=== PATIENT | female | born 1970 | race Caucasian/White ===

== ENCOUNTER 2017-07-01 23:45 | Emergency (ER) | payer OTHER ==
[~2017-07-01] VITALS: Ht 162.6 cm; Wt 104.5 kg
[2017-07-01 23:46] VITALS: BP 131/74; TEMP 98.7
[2017-07-01] MEDS ORDERED: EVOXAC30 MG PO (23:51)
[2017-07-01] MEDS ORDERED: PLAQUENIL 200M200 MG PO (23:51)
[2017-07-01] MEDS ORDERED: PROVIGIL 100MG100 MG PO (23:52)
[2017-07-01] MEDS ORDERED: VITAMIN D31000 I1 PO (23:53)
[2017-07-01] MEDS ORDERED: BENADRYL E2.5 MG/1 M PO (23:53)
[2017-07-02] MEDS ORDERED: SYNTHROID0.1 MG/TAB PO (00:33)
[2017-07-02] MEDS ORDERED: TUSS PO (01:56)
[2017-07-02 02:04] VITALS: PULSE 102
[2017-07-07] VITALS (666 sets, daily range): O2SAT 86–100
== END 2017-07-02 02:05 | disposition home or self-care (01) ==
LOC: COL.ER 23:45
DX: J30.9 Allergic rhinitis, unspecified (principal); R07.81 Pleurodynia; R05 Cough; E03.9 Hypothyroidism, unspecified; Z90.710 Acquired absence of both cervix and uterus; Z90.89 Acquired absence of other organs

== ENCOUNTER 2017-07-04 05:44 | Inpatient (IN) | payer OTHER ==
[~2017-07-04] VITALS: Ht 162.6 cm; Wt 106.9 kg
[~2017-07-04 05:44] MED LIST: BENADRYL E2.5 MG/1 M PO; EVOXAC30 MG PO; PLAQUENIL 200M200 MG PO; PROVIGIL 100MG100 MG PO; SYNTHROID0.1 MG/TAB PO; TUSS PO; VITAMIN D31000 I1 PO
[2017-07-04 06:28] LABS: BASO # 0.1 (0.0-0.2); BASO % 0.3 % (0.0-2.0); EOS % 0.1 % (0-4.0); GRAN # 14.1 (1.4-6.5); GRAN % 86.7 % (42.2-75.2); LYMPH # 1.1 (1.2-3.4); LYMPH % 6.7 % (20.0-51.0); MEAN CELL VOLUME 92 fl (80.0-100.0); MEAN CORPUSCULAR HGB CONC 33 g/dl (33.0-37.0); MEAN PLATELET VOLUME 8.5 fl (7.4-10.4); MONO % 5.9 % (1.7-9.3); PLATELET COUNT 427 K/mm3 (130-400); RED BLOOD COUNT 3.83 M/mm3 (4.10-5.30); WHITE BLOOD COUNT 16.3 K/mm3 (4.8-10.8)
[2017-07-04 06:29] LABS: HEMATOCRIT 35.2 % (37.0-47.0); HEMOGLOBIN 11.7 g/dl (12.5-16.0); MEAN CORPUSCULAR HEMOGLOBIN 31 pg (27.0-31.0)
[2017-07-04 06:50] LABS: ADJUSTED CALCIUM 9.5 mg/dL (8.4-10.2); ALBUMIN 4.1 gm/dL (3.5-5.0); BILIRUBIN,TOTAL 1.4 mg/dL (0.0-1.0); CALCIUM 9.6 mg/dL (8.4-10.2); CREATININE, serum 0.71 mg/dL (0.52-1.25); POTASSIUM 3.5 mmol/L (3.4-5.0); TOTAL PROTEIN 7.1 gm/dL (6.4-8.2)
[2017-07-04 07:17] LABS: B-TYPE NATRIURETIC PEPTIDE 69 pg/mL (0-125)
[2017-07-04 07:18] LABS: TROPONIN-I < 0.012 ng/mL (0.000-0.034)
[2017-07-04 07:32] LABS: C-REACTIVE PROTEIN 21.6 mg/dL (0.0-0.9)
[2017-07-04 09:52] VITALS: BP 128/69; PULSE 98; TEMP 97.1
[2017-07-04] MEDS ORDERED: EVOXAC30 MG PO (10:52)
[2017-07-04] MEDS ORDERED: ADVIL200 MG PO (11:16)
[2017-07-04] MEDS ORDERED: TUMS500 MG (11:18)
[2017-07-04 12:52] VITALS: BP 114/53; PULSE 95; TEMP 98.3
[2017-07-04 16:01] VITALS: BP 142/74; PULSE 106; TEMP 97.4
[2017-07-04 18:14] LABS: INFLUENZA B NEGATIVE
[2017-07-04 21:20] VITALS: BP 134/58; PULSE 118; TEMP 98.5
[2017-07-04 23:59] VITALS: BP 117/66; PULSE 115; TEMP 97.1
[2017-07-05] VITALS (272 sets, daily range): BP systolic 94–154; BP diastolic 54–75; PULSE 94–117; TEMP 97.5–99.3; O2SAT 87–100
[2017-07-05 07:35] LABS: MEAN CELL VOLUME 95 fl (80.0-100.0); MEAN CORPUSCULAR HGB CONC 32 g/dl (33.0-37.0); MEAN PLATELET VOLUME 8.8 fl (7.4-10.4); PLATELET COUNT 437 K/mm3 (130-400); RED BLOOD COUNT 3.71 M/mm3 (4.10-5.30); REDCELL DISTRIBUTION WIDTH-CV 13.2 % (11.5-14.5)
[2017-07-05 07:37] LABS: INR 1.4 (0.8-3.0); PROTHROMBIN TIME 15.7 SECONDS (9.7-12.8)
[2017-07-05 07:38] LABS: ADD PATHOLOGY DIFF REVIEW NO; HEMATOCRIT 35.1 % (37.0-47.0); HEMOGLOBIN 11.1 g/dl (12.5-16.0); MEAN CORPUSCULAR HEMOGLOBIN 30 pg (27.0-31.0)
[2017-07-05 07:54] LABS: CALCIUM 8.5 mg/dL (8.4-10.2); CREATININE, serum 0.65 mg/dL (0.52-1.25); MAGNESIUM 1.7 mg/dL (1.6-2.3); PHOSPHOROUS 3.5 mg/dL (2.5-4.5); POTASSIUM 3.4 mmol/L (3.4-5.0)
[2017-07-05 08:54] LABS: BAND 22 % (0-10); BASOPHIL 1 % (0-2); METAMYELOCYTE 1 % (0-0); NEUTROPHILS 70 % (42.0-75.2); PLATELET ESTIMATE NORMAL (NORMAL); TOTAL CELLS COUNTED 100
[2017-07-05 20:07] LABS: ARTERIAL BLD GAS O2 SATURATION 93.6 % (92-100); ARTERIAL BLD GAS TCO2 CT 22.6; ARTERIAL BLOOD GAS BASE EXCESS -2.6 (-2-2); ARTERIAL BLOOD GAS HCO3 21.5 meq/L (22-26); ARTERIAL BLOOD GAS PO2 68.4 mmHg (80-100); ARTERIAL BLOOD GAS pH 7.41 (7.35-7.45); ATS? NO; OXYHEMOGLOBIN 92.8 %
[2017-07-06] VITALS (1094 sets, daily range): BP systolic 88–121; BP diastolic 49–86; PULSE 89–100; TEMP 97.6–99.9; O2SAT 87–100
[2017-07-06 05:13] LABS: ARTERIAL BLD GAS O2 SATURATION 95.5 % (92-100); ARTERIAL BLD GAS TCO2 CT 24.8; ARTERIAL BLOOD GAS BASE EXCESS 1.1 (-2-2); ARTERIAL BLOOD GAS HCO3 23.8 meq/L (22-26); ARTERIAL BLOOD GAS PO2 76.3 mmHg (80-100); ATS? NO; OXYHEMOGLOBIN 94.6 %
[2017-07-06 06:19] LABS: MEAN CELL VOLUME 94 fl (80.0-100.0); MEAN CORPUSCULAR HGB CONC 33 g/dl (33.0-37.0); MEAN PLATELET VOLUME 8.6 fl (7.4-10.4); PLATELET COUNT 424 K/mm3 (130-400); REDCELL DISTRIBUTION WIDTH-CV 13.3 % (11.5-14.5)
[2017-07-06 06:25] LABS: ADD PATHOLOGY DIFF REVIEW NO; HEMOGLOBIN 10.3 g/dl (12.5-16.0); MEAN CORPUSCULAR HEMOGLOBIN 31 pg (27.0-31.0); WHITE BLOOD COUNT 20.1 K/mm3 (4.8-10.8)
[2017-07-06 06:34] LABS: ADJUSTED CALCIUM 9.2 mg/dL (8.4-10.2); ALBUMIN 2.9 gm/dL (3.5-5.0); BAND 1 % (0-10); BILIRUBIN,TOTAL 0.9 mg/dL (0.0-1.0); CALCIUM 8.3 mg/dL (8.4-10.2); CREATININE, serum 0.95 mg/dL (0.52-1.25); MAGNESIUM 1.9 mg/dL (1.6-2.3); NEUTROPHILS 83 % (42.0-75.2); PHOSPHOROUS 3.1 mg/dL (2.5-4.5); TOTAL CELLS COUNTED 100; TOTAL PROTEIN 6.1 gm/dL (6.4-8.2)
[2017-07-06 06:35] LABS: ANISOCYTOSIS 1+; POLYCHROMASIA 1+
[2017-07-06 06:38] LABS: MICROCYTOSIS 1+; ROULEAUX 1+
[2017-07-06 06:39] LABS: HYPOCHROMIA 1+
[2017-07-06 06:48] LABS: PROLACTIN 55.8 ng/mL (3.0-18.6)
[2017-07-06 07:54] LABS: VANCOMYCIN TROUGH 20.38 ug/mL (7.00-20.00)
[2017-07-06 08:08] LABS: C-REACTIVE PROTEIN 42.7 mg/dL (0.0-0.9)
[2017-07-06 11:24] LABS: ARTERIAL BLD GAS O2 SATURATION 94.7 % (92-100); ARTERIAL BLD GAS TCO2 CT 24.8; ARTERIAL BLOOD GAS BASE EXCESS 0.2 (-2-2); ARTERIAL BLOOD GAS HCO3 23.8 meq/L (22-26); ARTERIAL BLOOD GAS PO2 75.4 mmHg (80-100); ARTERIAL BLOOD GAS pH 7.45 (7.35-7.45); ATS? YES; OXYHEMOGLOBIN 93.7 %
[2017-07-07] VITALS (11 sets, daily range): BP systolic 106–121; BP diastolic 59–87; PULSE 80–91; TEMP 97.2–98.6; O2SAT 94–97
[2017-07-07 06:17] LABS: BASO # 0.1 (0.0-0.2); BASO % 0.4 % (0.0-2.0); EOS # 0.1 (0.0-0.7); EOS % 0.7 % (0-4.0); GRAN # 10.8 (1.4-6.5); GRAN % 81.1 % (42.2-75.2); LYMPH # 1.4 (1.2-3.4); LYMPH % 10.6 % (20.0-51.0); MEAN CELL VOLUME 96 fl (80.0-100.0); MEAN CORPUSCULAR HGB CONC 32 g/dl (33.0-37.0); MEAN PLATELET VOLUME 8.6 fl (7.4-10.4); MONO # 0.9 (0.1-0.6); MONO % 6.7 % (1.7-9.3); PLATELET COUNT 363 K/mm3 (130-400); RED BLOOD COUNT 2.81 M/mm3 (4.10-5.30); REDCELL DISTRIBUTION WIDTH-CV 13.5 % (11.5-14.5); WHITE BLOOD COUNT 13.3 K/mm3 (4.8-10.8)
[2017-07-07 06:20] LABS: HEMATOCRIT 26.9 % (37.0-47.0); HEMOGLOBIN 8.6 g/dl (12.5-16.0); MEAN CORPUSCULAR HEMOGLOBIN 31 pg (27.0-31.0)
[2017-07-07 06:31] LABS: CALCIUM 8.2 mg/dL (8.4-10.2); CREATININE, serum 1.12 mg/dL (0.52-1.25); MAGNESIUM 2.3 mg/dL (1.6-2.3); PHOSPHOROUS 3.7 mg/dL (2.5-4.5); POTASSIUM 4.1 mmol/L (3.4-5.0)
[2017-07-07 19:57] LABS: ADJUSTED CALCIUM 9.2 mg/dL (8.4-10.2); ALBUMIN 2.8 gm/dL (3.5-5.0); BILIRUBIN,TOTAL 0.9 mg/dL (0.0-1.0); CALCIUM 8.2 mg/dL (8.4-10.2); CREATININE, serum 0.99 mg/dL (0.52-1.25); POTASSIUM 3.4 mmol/L (3.4-5.0); TOTAL PROTEIN 5.3 gm/dL (6.4-8.2)
[2017-07-07 20:03] LABS: VANCOMYCIN TROUGH 21.38 ug/mL (7.00-20.00)
[2017-07-08 04:23] VITALS: BP 122/53; PULSE 79; TEMP 98.1
[2017-07-08 07:44] LABS: BASO # 0.1 (0.0-0.2); BASO % 0.5 % (0.0-2.0); EOS # 0.2 (0.0-0.7); EOS % 1.6 % (0-4.0); GRAN # 7.5 (1.4-6.5); GRAN % 73.6 % (42.2-75.2); LYMPH # 1.4 (1.2-3.4); MEAN CELL VOLUME 95 fl (80.0-100.0); MEAN CORPUSCULAR HGB CONC 32 g/dl (33.0-37.0); MEAN PLATELET VOLUME 8.5 fl (7.4-10.4); MONO % 9.6 % (1.7-9.3); PLATELET COUNT 391 K/mm3 (130-400); RED BLOOD COUNT 2.82 M/mm3 (4.10-5.30); REDCELL DISTRIBUTION WIDTH-CV 13.4 % (11.5-14.5); WHITE BLOOD COUNT 10.2 K/mm3 (4.8-10.8)
[2017-07-08 07:51] LABS: HEMATOCRIT 26.7 % (37.0-47.0); HEMOGLOBIN 8.6 g/dl (12.5-16.0); MEAN CORPUSCULAR HEMOGLOBIN 30 pg (27.0-31.0)
[2017-07-08 07:56] LABS: CALCIUM 8.1 mg/dL (8.4-10.2); CREATININE, serum 1.03 mg/dL (0.52-1.25); MAGNESIUM 2.2 mg/dL (1.6-2.3); PHOSPHOROUS 4.2 mg/dL (2.5-4.5); POTASSIUM 3.1 mmol/L (3.4-5.0)
[2017-07-08 09:22] VITALS: BP 133/64; PULSE 76; TEMP 98
[2017-07-08 12:35] VITALS: BP 133/67; PULSE 77; TEMP 98.5
[2017-07-08 15:39] VITALS: BP 136/63; PULSE 82; TEMP 98.2
[2017-07-08 21:27] VITALS: BP 146/73; PULSE 84; TEMP 98.5
[2017-07-09] VITALS (7 sets, daily range): BP systolic 126–154; BP diastolic 56–68; PULSE 72–90; TEMP 98–99.2
[2017-07-10 02:00] VITALS: BP 149/73; PULSE 73; TEMP 97.5
[2017-07-10 05:31] VITALS: BP 140/77; PULSE 85; TEMP 98.9
[2017-07-10 06:55] LABS: MEAN CELL VOLUME 96 fl (80.0-100.0); MEAN CORPUSCULAR HGB CONC 32 g/dl (33.0-37.0); MEAN PLATELET VOLUME 8.3 fl (7.4-10.4); PLATELET COUNT 411 K/mm3 (130-400); RED BLOOD COUNT 2.82 M/mm3 (4.10-5.30); REDCELL DISTRIBUTION WIDTH-CV 13.6 % (11.5-14.5); WHITE BLOOD COUNT 11.2 K/mm3 (4.8-10.8)
[2017-07-10 06:57] LABS: HEMOGLOBIN 8.5 g/dl (12.5-16.0); MEAN CORPUSCULAR HEMOGLOBIN 30 pg (27.0-31.0)
[2017-07-10 06:58] LABS: ADD PATHOLOGY DIFF REVIEW NO
[2017-07-10 07:09] LABS: CALCIUM 8.3 mg/dL (8.4-10.2); CREATININE, serum 1.01 mg/dL (0.52-1.25); POTASSIUM 3.5 mmol/L (3.4-5.0)
[2017-07-10 07:20] LABS: BAND 19 % (0-10); EOSINOPHIL 2 % (0-4); NEUTROPHILS 54 % (42.0-75.2); TOTAL CELLS COUNTED 100
[2017-07-10 07:22] LABS: PLATELET ESTIMATE INCREASED (NORMAL)
[2017-07-10 07:23] LABS: HYPOCHROMIA 1+; STOMATOCYTE 1+
[2017-07-10] MEDS ORDERED: LEVAQUIN 5500 MG/TA1 PO (08:08)
[2017-07-10] MEDS ORDERED: CLEOCIN HCL300 MG PO (08:09)
[2017-07-10] MEDS ORDERED: NORCO 325 MG-7.1 TAB PO ×2 (08:14→11:26)
[2017-07-10] MEDS ORDERED: PROAIR HFA0.09 MG/AC IH (08:14)
[2017-07-10 10:16] VITALS: BP 152/63; PULSE 75; TEMP 99
[2017-07-10 11:50] VITALS: BP 133/68; PULSE 82; TEMP 99.2
== END 2017-07-10 16:23 | disposition home or self-care (01) | DRG 853 ==
LOC: COL.ER 05:44 → MEDICAL 08:37 → ICU 07-05 15:37 → JCC 07-07 17:10
PROVIDERS: Emergency Medicine; Family Medicine; Internal Medicine; Internal Medicine Pulmonary Disease; Nurse Practitioner Family; Physician Assistant
PROC: 0BNF4ZZ Release Right Lower Lung Lobe, Percutaneous Endoscopic Approach (ICD-10-PCS; principal; 2017-07-06)
DX: A41.9 Sepsis, unspecified organism (principal); J18.9 Pneumonia, unspecified organism; I50.33 Acute on chronic diastolic (congestive) heart failure; K72.00 Acute and subacute hepatic failure without coma; J90 Pleural effusion, not elsewhere classified; D68.51 Activated protein C resistance; Z68.41 Body mass index [BMI] 40.0-44.9, adult; J98.11 Atelectasis; M35.00 Sjogren syndrome, unspecified; E66.9 Obesity, unspecified; E87.6 Hypokalemia
CPT/HCPCS: 99223-AI; 99233-AI; 99239; A7048; A9284; C1751; C9113; J0330; J0696; J0780; J1170; J1644; J1650; J1940; J1956; J2185; J2270; J2405; J2543; J2704; J2710; J3010; J3370; J3480; J7030; J7040; J7050; Q9967

== ENCOUNTER → 2018-01-19 | Outpatient (CLI) | payer OTHER ==
[~2018-01-19] MED LIST changes: +ADVIL200 MG PO; +CLEOCIN HCL300 MG PO; +LEVAQUIN 5500 MG/TA1 PO; +NORCO 325 MG-7.1 TAB PO; +PROAIR HFA0.09 MG/AC IH; +TUMS500 MG
== END ==
LOC: MC.RAD 07:33
DX: Z12.31 Encounter for screening mammogram for malignant neoplasm of breast (principal)

== ENCOUNTER → 2020-02-12 | Outpatient (CLI) | payer OTHER | LOC: MC.RAD 18:18 | DX: Z12.31 Encounter for screening mammogram for malignant neoplasm of breast (principal); Z98.82 Breast implant status ==

== ENCOUNTER → 2022-03-13 | Outpatient (CLI) | payer BC | LOC: MC.RAD 07:15 | DX: Z12.31 Encounter for screening mammogram for malignant neoplasm of breast (principal) ==

== ENCOUNTER → 2024-03-15 | Outpatient (CLI) | payer BC | LOC: MC.RAD 07:22 | DX: Z12.31 Encounter for screening mammogram for malignant neoplasm of breast (principal) ==